=== PATIENT | female | born 1995 | race Two or more races ===

== ENCOUNTER 2025-08-30 20:35 | Emergency (ER) | payer MEDICAID, SELFPAY ==
[2025-08-30 20:41] VITALS: BMI 24.5
[2025-08-30 20:42] VITALS: BP 110/70; PULSE 89; RESP 19; TEMP 37.2; O2SAT 100
[2025-08-30 20:44] VITALS: PULSE 94; RESP 18; O2SAT 97
--- NOTE | 2025-08-30 20:45 | EDNOTE_ITS ---
Upper Respiratory Inf. RME/HPI General Chief Complaint: Flu Like Symptoms Stated Complaint: FLU LIKE SYMPTOMS Time Seen by Provider: 08/30/25 20:47 Arrival date/time: 08/30/25 20:35 RME / HPI RME / HPI Narrative: Dr. Lizama?s Main ED Evaluation: 30yo female with a history of anxiety BIBA from home presents to the ED for complaints of RLQ pain, nausea, and near syncope. Patient states she woke up this morning at 0500 having RLQ pain and chills. Patient reports associated chest tightness and nausea. EMS administered Zofran 4mg en route. Patient denies any vomiting, fever, or any other associated symptoms. She denies any previous abdominal surgeries. Denies any possibility of . NKA. Related Data Previous Rx's ?Medication ?Instructions ?Recorded diphenhydramine HCl 25 mg capsule 25 mg PO Q8H PRN all ergic symptoms 07/17/22 (Benadryl) #30 caps ondansetron 4 mg disintegrating 4 mg PO Q6H PRN nausea and 08/31/25 tablet vomiting #20 tabs Allergies Allergy/AdvReac Type Severity Reaction Status Date / Time No Known Allergies Allergy Verified 08/30/25 20:44 Review of Systems Review of Systems Systems Reviewed: All systems reviewed, normal except as documented Past Medical History Social History SMOKING STATUS: Never smoker ED Exam Narrative Physical exam: Generally patient is alert no obvious distress, heart regular rate and rhythm, lungs clear to auscultation equal bilaterally, abdomen soft bowel sounds present nondistended mild lower abdominal tenderness lateral to McBurney's point without rebound. Musculoskeletal exam showed no costovertebral angle tenderness. Skin is warm and dry. Course Quality Measures none Orders Category Date Time Status CT Screening NOW Care 08/30/25 20:[address] abdomen pelvis w con Stat Exams 08/30/25 20:48 Completed Beta HCG,Quantitative Stat Lab 08/30/25 20:55 Completed CBC Stat Lab 08/30/25 20:55 Completed CMP [Comprehensive Metabolic Panel] Stat Lab 08/30/25 20:55 Completed Lipase Stat Lab 08/30/25 20:55 Completed UA [Urinalysis] Stat Lab 08/30/25 23:06 Completed Sodium Chloride 0.9% 1000 ml [Ns] 1,000 ml Med 08/30/25 21:00 Discontinued IV 999 mls/hr Vital Signs Vital signs: Vital Signs Temperature 99 F 08/30/25 20:42 Pulse Rate 89 08/30/25 20:42 Respiratory Rate 19 08/30/25 20:42 Blood Pressure 110/70 08/30/25 20:42 Pulse Oximetry (%) 100 08/30/25 20:42 Oxygen Delivery Method Room Air 08/30/25 20:42 Upper Respiratory Infection MDM Narrative MDM Narrative:: Scribe Attestation: 08/30/25 - Isa Beltran am scribing for and in the presence of Dr. Lizama. There is no fever or leukocytosis. CT scan done the abdomen and pelvis with IV contrast showed a nonobstructing left kidney stone. No evidence for appendicitis. No hydro nephrosis. Urine is not infected. is negative. Patient was hydrated with a liter normal saline. She was already given Zofran with benefit from paramedics. Patient data External records reviewed:: [facility] previous records (Per chart review, patient has no relevant previous ED visits or admissions to this facility.) and EMS form Clinical information provided by:: patient and EMS Social determinants that could affect healthcare access:: none Patient has the following chronic illnesses:: none How is presenting disease/condition affected by chronic disease/condition?: no chronic disease Evaluation data The following diagnostics were reviewed and interpreted by me:: lab results and radiology exam(s) Lab and/or radiology exams considered but not ordered:: none Interpretation Summary: [facility] Report Signed Patient: NATALIA GIBBONS Record#: [id number] Birthdate: 1995 Age/Sex: 30 / F Location: [facility] Attending Dr: Ordering Physician: Vipul Lizama DO Date of Service: 08/30/25 Procedure(s): CT abdomen pelvis w con Accession Number(s): [id number] cc: Dave Ortega MD; Catherine Swenson PA-C; Vipul Lizama DO~ Examination: CT abdomen with intravenous contrast CT pelvis with intravenous contrast 2-D coronal reconstructions 2-D sagittal reconstructions Date and time of exam: August 30, 2025, 10:55 p.m. INDICATIONS: Flu symptoms abdominal pain beginning today. CTDI: vol (mGy) 7.1 DLP: (mGycm) 378 Technique: Multiple axial sections of the abdomen and pelvis have been obtained. 64 slice high-resolution scanner used. 3 mm axial sections have been obtained, post intravenous injection 60 cc [id number] 2-D sagittal, coronal reconstructions obtained. Low dose protocols were performed. One or more of the following dose reduction techniques were used; automated exposure control, adjustment of the mA and/or KV according to patient size, use of iterative reconstruction technique. Findings: No focal liver or splenic lesions No gallstones No pancreatic or adrenal mass 2 mm nonobstructing left renal calculus, no hydronephrosis or ureteral calculi Aorta normal size No CT findings of appendicitis bowel obstruction or diverticulitis No pelvic or bladder mass The osseous structures are intact IMPRESSION: 2 mm nonobstructing left renal calculus, no hydronephrosis or ureteral calculi No CT findings of appendicitis bowel obstruction or diverticulitis Dictated By: Dave Ortega MD Signed By: <Electronically signed by Dave Ortega MD in [place]> 08/30/25 7916 Medications / Prescriptions Medications or Prescriptions considered but not ordered:: none Medication administrations:: Medication Administration History Discontinued Medications Sodium Chloride (Ns) 1,000 mls @ 999 mls/hr IV .Q1H1M ONE Stop: 08/30/25 22:00 Last Infusion: 08/30/25 22:28 Dose: Infused Documented By: Admin: 08/30/25 21:08 Dose: 999 mls/hr Documented By: WALTER see above Consultations Consultation(s) initiated? (list below): No Diagnosis Upper Respiratory Differential Diagnosis: other (See MDM) Most likely diagnosis given after review of the tests above:: see clinical impression below Admission Indicated Admission indicated?: not indicated Admission Request Was there a request for admission?: No Disposition Plan Disposition Plan: Discharge Discharge Attestation Discharge Attestation: The patient and all family members were given an opportunity to ask questions and understood the discharge instructions. Discharge instructions specifically effects, indications for sooner follow up or return to the emergency department, and the expected course of current diagnosis. Patient condition: Stable Discharge Plan Plan Patient Disposition: HOME (Self Care) Prescriptions/Referrals Prescriptions/Med Rec: New ondansetron 4 mg tablet,disintegrating 4 mg PO Q6H PRN (Reason: nausea and vomiting) Qty: 20 0RF No Action diphenhydramine HCl [Benadryl] 25 mg capsule 25 mg PO Q8H PRN (Reason: allergic symptoms) Qty: 30 0RF Referrals: Catherine Swenson PA-C [Primary Care Provider] - In 1 week Problem List Clinical Impression: Abdominal pain, Vomiting Patient/Caregiver Discharge Instructions Education Materials: Abdominal Pain Additional Instructions: Zofran as prescribed. Tylenol for pain. Clear liquid diet and advance as tolerated. Follow-up with your doctor. Return to ER as needed or if condition worsens. Print Language: [place] Island[place] Stand Alone Forms: [facility] Award Info., Patient Portal Info Letter
--- NOTE | 2025-08-30 20:48 | XR_ITS ---
Examination: CT abdomen with intravenous contrast CT pelvis with intravenous contrast 2-D coronal reconstructions 2-D sagittal reconstructions Date and time of exam: August 30, 2025, 10:55 p.m. INDICATIONS: Flu symptoms abdominal pain beginning today. CTDI: vol (mGy) 7.1 DLP: (mGycm) 378 Technique: Multiple axial sections of the abdomen and pelvis have been obtained. 64 slice high-resolution scanner used. 3 mm axial sections have been obtained, post intravenous injection 60 cc [id number] 2-D sagittal, coronal reconstructions obtained. Low dose protocols were performed. One or more of the following dose reduction techniques were used; automated exposure control, adjustment of the mA and/or KV according to patient size, use of iterative reconstruction technique. Findings: No focal liver or splenic lesions No gallstones No pancreatic or adrenal mass 2 mm nonobstructing left renal calculus, no hydronephrosis or ureteral calculi Aorta normal size No CT findings of appendicitis bowel obstruction or diverticulitis No pelvic or bladder mass The osseous structures are intact IMPRESSION: 2 mm nonobstructing left renal calculus, no hydronephrosis or ureteral calculi No CT findings of appendicitis bowel obstruction or diverticulitis
[2025-08-30] MEDS: SODIUM CHLORIDE 0.9% 1000 ML 1,000 ML 999 ML IV (21:08)
[2025-08-30 21:25] LABS: Basophils # (Auto) 0.0 Thou/mm3 (0.0-0.2); Basophils % (Auto) 0 % (0-2.5); Eosinophils # (Auto) 0.2 Thou/mm3 (0.0-0.5); Eosinophils % (Auto) 2 % (0-10); Hematocrit 38.4 % (36.0-46.0); Hemoglobin 13.5 g/dL (12.0-16.0); Immature Granulocytes Auto 0.04 Thou/mm3 (0.00-0.00); Lymphocytes # (Auto) 2.1 Thou/mm3 (1.0-4.8); Lymphocytes % (Auto) 17 % (10-50); Mean Corpuscular HGB Conc 35.2 g/dl (31.0-37.0); Mean Corpuscular Hemoglobin 29.5 pg (25.0-35.0); Mean Corpuscular Volume 84 fL (80-100); Monocytes # (Auto) 0.9 Thou/mm3 (0.0-0.8); Monocytes % (Auto) 7 % (0-12); Neutrophils # (Auto) 9.3 Thou/mm3 (1.8-7.7); Neutrophils % (Auto) 74 % (37-80); Nucleated Red Blood Cell # 0.00 Thou/mm3 (0.00-0.00); Nucleated Red Blood Cell % 0 /100 WBC (0); Platelet Count 371 Thou/mm3 (140-440); RDW Standard Deviation 43.0 fL (36.4-46.3); Red Blood Count 4.57 Miln/mm3 (4.00-5.20); White Blood Count 12.6 Thou/mm3 (3.6-11.0)
[2025-08-30 21:44] LABS: Alanine Aminotransferase 8 U/L (10-49); Albumin, Serum 5.0 gm/dL (3.5-5.0); Albumin/Globulin Ratio 2.2 (1.2-2.2); Alkaline Phosphatase 40 U/L (46-116); Anion Gap 14 (7-16); Aspartate Amino Transferase 18 U/L (0-34); BUN/Creatinine Ratio 19 Ratio (12-20); Beta HCG,Quantitative < 1 mIU/mL (<5.0); Bilirubin,Total 0.6 mg/dL (0.3-1.2); Blood Urea Nitrogen 13 mg/dL (9-23); Calcium 8.9 mg/dL (8.3-10.6); Calcium (Corrected) 8.9 mg/dL (8.5-10.1); Carbon Dioxide 21.2 mMol/L (20.0-31.0); Chloride 106 mMol/L (98-107); Creatinine (Component) 0.7 mg/dL (0.6-1.3); Estimated Creatinine Clearance 95.2 mL/min (>60); Globulin 2.3 gm/dL (2.3-3.5); Glucose 94 mg/dL (74-106); Lipase 32 U/L (12-53); Osmolality,Calculated 281 (275-295); Potassium 4.1 mMol/L (3.4-5.1); Sodium 141 mMol/L (136-145); Total Protein 7.3 gm/dL (5.7-8.2); eGFR > 60 See Note
[2025-08-30 23:07] VITALS: BP 123/67; PULSE 103; RESP 16; TEMP 36.7; O2SAT 100
[2025-08-30 23:22] LABS: Collection Type, Urine Voided
[2025-08-30 23:40] LABS: Bacteria,Urine Rare; Bilirubin,Urine Negative (Negative); Blood,Urine Negative (Negative); Clarity,Urine Clear (Clear/Hazy); Color,Urine Lt-Yellow (Lt Yel-Yel); Glucose, Urine Negative (Negative); Ketones,Urine 3+ (Negative); Leukocyte Esterase,Urine Negative (Negative); Nitrite,Urine Negative (Negative); PH,Urine 6.0 (5.0-7.0); Protein,Urine Negative (Neg - Trace); RBC,Urine 7 /hpf (0-3); Specific Gravity,Urine 1.018 (1.001-1.035); Squamous Epithelial Cell,Urine 4 /hpf (0-5); Urobilinogen,Urine Negative mg/dL (0.0-1.0); WBC,Urine 1 /hpf (0-5)
== END 2025-08-31 00:29 | disposition home or self-care (01) ==
PROVIDERS: Emergency Provider Emergency Medicine; PCP Physician Assistant Medical
DX: J11.1 Influenza due to unidentified influenza virus with other respiratory manifestations (principal); N20.0 Calculus of kidney
CPT/HCPCS: 36415; 74177; 80053; 81001; 83690; 84702; 85025; 87400; 87811; 96360; 99284; A4649; J7030; Q9967